=== PATIENT | male | born 1990 | race African-American/Black ===

== ENCOUNTER 2019-06-17 10:48 | Emergency (ER) | payer SELFPAY ==
[~2019-06-17] VITALS: Ht 165.1 cm; Wt 80.0 kg
[2019-06-17] MEDS ORDERED: VISCOUS LIDOCAINE 2% 15 ML UDC PO STA (12:43)
[2019-06-17 14:35] VITALS: BP 114/86
== END 2019-06-17 14:36 | disposition home or self-care (01) ==
LOC: ER 10:48
DX: J02.9 Acute pharyngitis, unspecified (principal)
CPT/HCPCS: 87070; 87430; 99283

== ENCOUNTER 2022-01-26 14:55 | Emergency (ER) | payer SELFPAY ==
[~2022-01-26] VITALS: Ht 172.7 cm; Wt 88.0 kg
[2022-01-26 15:19] VITALS: BP 128/81
== END 2022-01-26 22:29 | disposition left against medical advice (07) ==
LOC: ER 14:55
DX: Z53.21 Procedure and treatment not carried out due to patient leaving prior to being seen by health care provider (principal)
CPT/HCPCS: Z7610 ×4; 99281